=== PATIENT | female | born 1950 | race Caucasian/White ===

== ENCOUNTER → 2018-07-19 | Outpatient (CLI) | payer OTHER ==
[~2018-07-19] MED LIST: ALB17R INH; DOCU-214 PO; FLUT16SP20 NS; LEVO500T PO; LOR5/325 PO; MULT1CAP41 PO; PRE20 PO; RISE35TA PO; ZPACK; [UNRECOGNIZED DRUG - CODE] PO
--- NOTE | 2018-07-20 11:39 | RADIOLOGY IMAGING REPORT ---
FACILITY: [facility] - [place] PATIENT NAME: ASCENCION VALDOVINOS : [id number] MR: [id number]: [id number] EXAM DATE: ORDERING PHYSICIAN: YENNY RAY TECHNOLOGIST: Marley Calhoun PROCEDURE:BILATERAL DIGITAL SCREENING MAMMOGRAM WITH CAD ASSISTED INTERPRETATION & 3D TOMOSYNTHESIS COMPARISON:Prior mammograms 07/03/17, 06/24/16, 06/23/15, 06/17/14, 06/04/13. INDICATIONS:SCREENING FINDINGS: Moderately dense fibroglandular tissue is seen throughout the breasts. The parenchymal pattern has remained stable allowing for difference in mammographic technique & patient positioning. There is no evidence of malignant appearing mass, malignant appearing calcifications or other secondary sign of malignancy in either breast. DIAGNOSTIC CATEGORY 1--NEGATIVE. RECOMMENDATIONS: ROUTINE MAMMOGRAM AND CLINICAL EVALUATION. IMPRESSION: BIRADS 1: Negative. No significant abnormality is seen. Dictated by: Citlaly Ramirez M.D. on 07/19/2018 at 17:08 Transcribed by: JAJA on 07/20/2018 at 7:40 Approved by: Citlaly Ramirez M.D. on 07/20/2018 at 11:39 [facility]
== END ==
LOC: MAMO 07-04 00:32
PROVIDERS: ATTEND Family Medicine
DX: Z12.31 Encounter for screening mammogram for malignant neoplasm of breast (principal)
CPT/HCPCS: 77063; 77067

== ENCOUNTER → 2019-03-08 | Outpatient (REF) | payer OTHER | LOC: ZZSENDIN 13:09 | PROVIDERS: ATTEND Physician Assistant | DX: N39.0 Urinary tract infection, site not specified (principal); B96.20 Unspecified Escherichia coli [E. coli] as the cause of diseases classified elsewhere | CPT/HCPCS: 81001; 87077; 87088; 87186 ==